=== PATIENT | female | born 1990 | race African-American/Black ===

== ENCOUNTER 2021-08-24 06:11 | Emergency (ER) | payer SELFPAY ==
[2021-08-24 07:33] LABS: SARS-CoV-2 NAA Rapid Test Not Detected (NotDetected)
== END 2021-08-24 07:17 | disposition home or self-care (01) ==
LOC: CSHERS 06:11
DX: J06.9 Acute upper respiratory infection, unspecified (principal); Z20.822 Contact with and (suspected) exposure to COVID-19; J45.909 Unspecified asthma, uncomplicated; F17.210 Nicotine dependence, cigarettes, uncomplicated
CPT/HCPCS: 0240U; 71045